=== PATIENT | male | born 2000 | race African-American/Black ===

== ENCOUNTER 2024-02-09 10:07 | Emergency (ER) | payer BC, SELFPAY ==
--- NOTE | ~2024-02-09 | XR_ITS ---
EXAMINATION: XR chest 2V 02/09/2024 10:42 INDICATION: Asthma. Cough. PROCEDURE: 2 view chest COMPARISON: No prior studies for comparison. FINDINGS: The lungs are clear. The cardiomediastinal silhouette is within normal limits. There are no pleural effusions. There is no pneumothorax suspected. IMPRESSION: 1: NO ACUTE CARDIOPULMONARY DISEASE. Reviewed, dictated and finalized at location B.
[2024-02-09 10:20] VITALS: BP 127/74; PULSE 86; RESP 16; TEMP 36.9; O2SAT 97
[2024-02-09 11:25] VITALS: PULSE 79; RESP 18
--- NOTE | 2024-02-09 11:34 | ED.ASTHMA ---
HPI - Asthma General Chief Complaint: Asthma Stated Complaint: SOB Time Seen by Provider: 02/09/24 11:29 Source: patient Mode of arrival: ambulatory Limitations: no limitations History of Present Illness HPI Narrative: This is a 23-year-old male who presents to the ED with chief complaint of wheezing x1 day. Reports symptoms started last night and he started feeling tight the chest. Patient reports he has history of asthma but did not have access to his inhaler because it is at his mom's. Denies any recent illness. Denies chest pain, fevers, chills. Related Data Allergies Allergy/AdvReac Type Severity Reaction Status Date / Time No Known Allergies Allergy Verified 02/09/24 10:08 Review of Systems Review of Systems: All systems as dictated in HPI Exam Narrative: GENERAL: Well-appearing, well-nourished, and in no acute distress. HEAD: Normocephalic, atraumatic. EYES: PERRLA and EOMI. ENT: Nares clear, no rhinorrhea or epistaxis. Mucous membranes moist. Oropharynx without tonsillar hypertrophy exudate or other lesions. NECK: Supple. No adenopathy or masses. CHEST: No overt respiratory distress. He is speaking in 4-5 word sentences. No accessory muscle use. 97% room air. Diffuse expiratory wheezes throughout bilateral lung amaral. HEART: Regular rate and rhythm. No murmur heard. Normal peripheral pulses. ABDOMEN: Soft, nontender, nondistended, normal active bowel sounds. MSK: Normal range of motion. No edema. SKIN: Warm, dry, no rash. NEURO: Alert and oriented x3. No focal deficits. PSYCH: Normal mood and affect. Course Reevaluation(s) Reevaluation #1: After 2nd round of breathing treatments, wheezing has cleared. Patient feels much improved and ready to go home. Date: 02/09/24 Time: 12:58 Vital Signs Vital signs: Vital Signs Temperature 98.4 F 02/09/24 10:20 Pulse Rate 86 02/09/24 10:20 Respiratory Rate 16 02/09/24 10:20 Blood Pressure 127/74 02/09/24 10:20 Pulse Oximetry 97 02/09/24 10:20 Oxygen Delivery Room Air 02/09/24 10:20 Temperature 98.4 F 02/09/24 10:20 Pulse Rate 84 04/25/24 12:51 Respiratory Rate 18 02/09/24 12:51 Blood Pressure 127/74 02/09/24 10:20 Pulse Oximetry 97 02/09/24 10:20 Oxygen Delivery Room Air 02/09/24 10:20 MDM - Asthma MDM Narrative Medical decision making narrative: This is a 23-year-old male who presents to the ED with chief complaint of wheezing and possible asthma exacerbation. Vitals are normal. Exam does show diffuse expiratory wheezes but no respiratory distress. Chest x-ray is normal. Patient was given 2 rounds of breathing treatments had a resolution of his wheezing. Symptoms and presentation consistent with asthma exacerbation. He is stable for discharge home. He is in need of new albuterol Rx so that was sent over today. Pt will be discharged in stable condition. Return precautions given and supportive measures discussed. Pt is understanding and agreeable with plan for discharge and follow-up with PCP. Lab Data Labs: Lab Results 02/09/24 Range/Units 10:52 Influenza A (RT-PCR) Negative (Negative) Influenza B (RT-PCR) Negative (Negative) RSV (RT-PCR) Negative (Negative) SARS-CoV-2 RNA (RT-PCR) Negative (Negative) Discharge Plan Discharge Clinical Impression: Asthma with acute exacerbation Patient Disposition: Home, Self-Care Condition: Stable Instructions: Antibiotic Form, Asthma (ED) Additional Instructions: Your exam and imaging today are reassuring Please take albuterol inhaler as prescribed as needed. If you have any new or worsening symptoms please return to the ER for further evaluation. Prescriptions: New albuterol sulfate 90 mcg/actuation HFA aerosol inhaler 2 puff inhalation QID PRN (Reason: shortness of breath or wheezing) Qty: 6.7 0RF Follow-up/Referrals: PHYSICIAN,[facility] [Non-Staff] - Time of Disposition: 13:00
[2024-02-09] MEDS: IPRATROPIUM BR 0.02% INH SOLN 0.5 MG/2.5 ML VIAL 1 MG INHALATION (11:35)
[2024-02-09] MEDS: ALBUTEROL SULFATE NEB 2.5 MG/3 ML INH 10 MG INHALATION (11:35)
[2024-02-09 11:37] LABS: Influenza A QL RT-PCR Negative (Negative); Influenza B QL RT-PCR Negative (Negative); RSV RNA, RT-PCR Negative (Negative); SARS-CoV-2 RNA PCR Negative (Negative)
[2024-02-09 11:58] VITALS: PULSE 84; RESP 18
[2024-02-09 12:45] VITALS: PULSE 88; RESP 18
[2024-02-09] MEDS: IPRATROPIUM 0.5 MG/ALBUTEROL SULFATE 2.5 MG AMPUL.NEB 3 ML INHALATION (12:45)
[2024-02-09 12:51] VITALS: PULSE 84; RESP 18
[2024-02-09 13:10] VITALS: BP 145/80; PULSE 95; RESP 16; O2SAT 97
== END 2024-02-09 13:10 | disposition home or self-care (01) ==
PROVIDERS: Student in an Organized Health Care Education/Training Program; Emergency Provider Physician Assistant; PCP Internal Medicine
DX: J45.901 Unspecified asthma with (acute) exacerbation (principal); Z20.822 Contact with and (suspected) exposure to COVID-19
CPT/HCPCS: 71046; 87637; 94640; 99284